=== PATIENT | male | born 1955 | race American Indian/Alaskan Native ===

== ENCOUNTER 2021-04-17 03:48 | Emergency (ER) | payer MEDICARE ==
[2021-04-17] MEDS ORDERED: predniSONE 20 MG TAB PO ONE (06:11)
[2021-04-17] MEDS ORDERED: KETOROLAC 30 MG/1 ML INJ IM ONE ×2 (06:12→06:18)
[2021-04-17] MEDS ORDERED: predniSONE 10 MG TAB PO ONE ×2 (06:16→07:12)
--- NOTE | 2021-04-17 09:25 | Emergency Department Report ---
ED General Adult HPI - General Chief complaint: Extremity Injury, Lower Stated complaint: POSSIBLE GOUT PAIN Time Seen by Provider: 04/17/21 09:20 Source: patient Mode of arrival: Ambulatory Limitations: No Limitations - History of Present Illness Initial comments: 65-year-old -[place] male patient presents with complaints of sudden onset of left ankle pain 2 days ago. Patient states pain is consistent with his previous episodes of gout. He admits to some swelling, but denies any redness, fever/chills/sweats, or numbness/tingling/weakness in his ankle/foot. Patient rates his pain as a 10/10 in severity initially, however since being here in the ED and receiving prednisone and Toradol, states his pain has significantly improved. He is not currently on allopurinol. Last medical history of diabetes per patient. -: Sudden Severity scale (0 -10): 8 - Related Data Previous Rx's Medication Instructions Recorded Last Taken Type Apixaban [Eliquis] 5 mg PO Q12HR #60 tablet 11/13/20 Unknown Rx Insulin Glargine [Lantus VIAL] 32 units SUB-Q QHS #1 vial 11/13/20 Unknown Rx Insulin Glargine [Lantus VIAL] 37 units SUB-Q QAMDIAB #1 vial 11/13/20 Unknown Rx Mv/K/Omg3/D3/Mag/C/G.tea/Chrom 1 each PO DAILY #1 combo..pkg 11/13/20 Unknown Rx [Diabetes Health Pack] Indomethacin 50 mg PO Q8H PRN #15 capsule 04/17/21 Unknown Rx Prednisone [predniSONE 5 mg (6-Day 5 mg PO .TAPER #1 tab.ds.pk 04/17/21 Unknown Rx Pack, 21 Tabs)] Allergies Allergy/AdvReac Type Severity Reaction Status Date / Time Penicillins Allergy Swelling Verified 10/31/20 21:30 ED Review of Systems ROS: Stated complaint: POSSIBLE GOUT PAIN Other details as noted in HPI Constitutional: denies: chills, fever Respiratory: denies: cough, shortness of breath Musculoskeletal: joint swelling, arthralgia Skin: denies: change in color ED Past Medical Hx - Past Medical History Previous Medical History?: No Hx Hypertension: Yes Hx Diabetes: Yes Additional medical history: GOUT - Surgical History Past Surgical History?: No Hx Coronary Stent: Yes (x6) - Social History Smoking Status: Never Smoker Substance Use Type: None - Medications Home Medications: Home Medications Medication Instructions Recorded Confirmed Last Taken Type Apixaban [Eliquis] 5 mg PO Q12HR #60 tablet 11/13/20 Unknown Rx Insulin Glargine [Lantus VIAL] 32 units SUB-Q QHS #1 vial 11/13/20 Unknown Rx Insulin Glargine [Lantus VIAL] 37 units SUB-Q QAMDIAB #1 vial 11/13/20 Unknown Rx Mv/K/Omg3/D3/Mag/C/G.tea/Chrom 1 each PO DAILY #1 combo..pkg 11/13/20 Unknown Rx [Diabetes Health Pack] Indomethacin 50 mg PO Q8H PRN #15 capsule 04/17/21 Unknown Rx Prednisone [predniSONE 5 mg (6-Day 5 mg PO .TAPER #1 tab.ds.pk 04/17/21 Unknown Rx Pack, 21 Tabs)] ED Physical Exam - General Limitations: No Limitations General appearance: alert, in no apparent distress, obese - Head Head exam: Present: atraumatic, normocephalic - Eye Eye exam: Present: normal appearance - Respiratory Respiratory exam: Absent: respiratory distress - Cardiovascular Cardiovascular Exam: Present: regular rate - Extremities Exam Extremities exam: Present: joint swelling (Tenderness and swelling noted to left ankle without overlying skin changes; patient has normal pedal pulse and range of motion and sensation) - Neurological Exam Neurological exam: Present: alert, oriented X3 - Psychiatric Psychiatric exam: Present: normal affect, normal mood ED Course Vital Signs 04/17/21 04/17/21 05:13 08:55 Temperature 98.9 F 98 F Pulse Rate 84 77 Respiratory 100 H 16 Rate Blood Pressure 180/106 Blood Pressure 113/60 [Right] O2 Sat by Pulse 94 98 Oximetry ED Medical Decision Making - Medical Decision Making 65-year-old -[place] male patient presents with complaints of sudden onset of left ankle pain 2 days ago. Patient states pain is consistent with his previous episodes of gout. He admits to some swelling, but denies any redness, fever/chills/sweats, or numbness/tingling/weakness in his ankle/foot. Patient rates his pain as a 10/10 in severity initially, however since being here in the ED and receiving prednisone and Toradol, states his pain has significantly improved. He is not currently on allopurinol. Last medical history of diabetes per patient. History and physical consistent with gout flare. Patient to discharge home with indomethacin and follow-up with his primary care in 3 to 5 days. Discussed signs and symptoms that should prompt immediate return to the emergency department in detail patient who verbalizes understanding. He is well-appearing and stable for discharge home Critical care attestation.: If time is entered above; I have spent that time in minutes in the direct care of this critically ill patient, excluding procedure time. ED Disposition Clinical Impression: Gout flare Disposition: DC- TO HOME OR SELFCARE Is pt being admited?: No Condition: Stable Instructions: Low-Purine Eating Plan Prescriptions: Indomethacin 50 mg PO Q8H PRN #15 capsule PRN Reason: pain Prednisone [predniSONE 5 mg (6-Day Pack, 21 Tabs)] 5 mg PO .TAPER #1 tab.herrera Referrals: [facility] [Provider Group] - 3-5 Days
[2021-04-17 09:42] VITALS: BP 181/101
== END 2021-04-17 09:30 | disposition home or self-care (01) ==
LOC: ED 03:48
DX: M10.9 Gout, unspecified (principal); I10 Essential (primary) hypertension; E11.9 Type 2 diabetes mellitus without complications; Z98.890 Other specified postprocedural states; Z79.4 Long term (current) use of insulin; Z79.899 Other long term (current) drug therapy; Z88.0 Allergy status to penicillin
CPT/HCPCS: 96372; 99282; J1885; J7512

== ENCOUNTER 2021-07-23 16:33 | Emergency (ER) | payer MEDICARE ==
[2021-07-23 20:49] VITALS: BP 194/115
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
== END 2021-07-23 22:06 | disposition home or self-care (01) ==
LOC: ED 16:33
DX: M54.2 Cervicalgia (principal); M54.5 Low back pain; I10 Essential (primary) hypertension; E11.8 Type 2 diabetes mellitus with unspecified complications; M10.9 Gout, unspecified; Z98.890 Other specified postprocedural states; Z88.0 Allergy status to penicillin; V87.7XXA Person injured in collision between other specified motor vehicles (traffic), initial encounter; Y93.89 Activity, other specified; Y92.89 Other specified places as the place of occurrence of the external cause; Y99.8 Other external cause status
CPT/HCPCS: 99281

== ENCOUNTER 2021-08-14 17:43 | Emergency (ER) | payer MEDICARE, OTHER ==
[2021-08-14 18:28] VITALS: BP 159/93
--- NOTE | 2021-08-14 18:48 | Emergency Department Report ---
ED General Adult HPI - General Chief complaint: Hyperglycemia Stated complaint: BLOOD SUGAR 326 Source: patient Mode of arrival: Ambulatory Limitations: No Limitations - History of Present Illness Initial comments: Patient came here at the direction of urgent care because of blood sugar was 326. He is diabetic. He is on oral medications. He has chosen not to take them. He noticed that his blood sugar was high and he Called urgent care. he states that urgent care told him to come here because his sugar was 326. He has no chest pain. He has no shortness of breath. There is no back pain or vomiting. He has had no trauma. Again, he has medications at home. He has chosen not to take them. He cannot really delineate why he chose not to take them. He states that maybe he did not need them. - Related Data Previous Rx's Medication Instructions Recorded Last Taken Type Apixaban [Eliquis] 5 mg PO Q12HR #60 tablet 11/13/20 Unknown Rx Insulin Glargine [Lantus VIAL] 32 units SUB-Q QHS #1 vial 11/13/20 Unknown Rx Insulin Glargine [Lantus VIAL] 37 units SUB-Q QAMDIAB #1 vial 11/13/20 Unknown Rx Mv/K/Omg3/D3/Mag/C/G.tea/Chrom 1 each PO DAILY #1 combo..pkg 11/13/20 Unknown Rx [Diabetes Health Pack] Indomethacin 50 mg PO Q8H PRN #15 capsule 04/17/21 Unknown Rx Prednisone [predniSONE 5 mg (6-Day 5 mg PO .TAPER #1 tab.ds.pk 04/17/21 Unknown Rx Pack, 21 Tabs)] Naproxen 375 mg PO BID PRN #14 tablet 07/23/21 Unknown Rx methOCARBAMOL [Robaxin TAB] 500 mg PO BID PRN #14 tab 07/23/21 Unknown Rx Allergies Allergy/AdvReac Type Severity Reaction Status Date / Time Penicillins Allergy Swelling Verified 10/31/20 21:30 ED Review of Systems ROS: Stated complaint: BLOOD SUGAR 326 Other details as noted in HPI ED Past Medical Hx - Past Medical History Previous Medical History?: Yes Hx Hypertension: Yes Hx Diabetes: Yes Additional medical history: GOUT - Surgical History Past Surgical History?: Yes Hx Coronary Stent: Yes (x6) - Social History Smoking Status: Never Smoker Substance Use Type: None - Medications Home Medications: Home Medications Medication Instructions Recorded Confirmed Last Taken Type Apixaban [Eliquis] 5 mg PO Q12HR #60 tablet 11/13/20 Unknown Rx Insulin Glargine [Lantus VIAL] 32 units SUB-Q QHS #1 vial 11/13/20 Unknown Rx Insulin Glargine [Lantus VIAL] 37 units SUB-Q QAMDIAB #1 vial 11/13/20 Unknown Rx Mv/K/Omg3/D3/Mag/C/G.tea/Chrom 1 each PO DAILY #1 combo..pkg 11/13/20 Unknown Rx [Diabetes Health Pack] Indomethacin 50 mg PO Q8H PRN #15 capsule 04/17/21 Unknown Rx Prednisone [predniSONE 5 mg (6-Day 5 mg PO .TAPER #1 tab.ds.pk 04/17/21 Unknown Rx Pack, 21 Tabs)] Naproxen 375 mg PO BID PRN #14 tablet 07/23/21 Unknown Rx methOCARBAMOL [Robaxin TAB] 500 mg PO BID PRN #14 tab 07/23/21 Unknown Rx ED Physical Exam - General Limitations: No Limitations ED Course Vital Signs 08/14/21 18:22 Temperature 98.3 F Pulse Rate 72 Respiratory 18 Rate Blood Pressure 159/93 O2 Sat by Pulse 100 Oximetry - Reevaluation(s) Reevaluation #1: 08/14/21 18:48 Labs were ordered. Reevaluation #2: 08/14/21 19:12 Glucose was noted. Patient can take his regular medication at home. He does not require emergent intervention here. ED Medical Decision Making - Lab Data Result diagrams: 08/14/21 18:33 Critical Care Time: No Critical care attestation.: If time is entered above; I have spent that time in minutes in the direct care of this critically ill patient, excluding procedure time. ED Disposition Clinical Impression: Hyperglycemia due to type 2 diabetes mellitus, Uncontrolled hypertension, Noncompliance Disposition: 01 HOME / SELF CARE / HOMELESS Is pt being admited?: No Does the pt Need Aspirin: No Condition: Stable Instructions: Diabetes Mellitus Type 2 in Adults (ED), Hypertension (ED), Hyperglycemia, [id number], Type 2 Diabetes Mellitus, Self Care, Adult, Preventing Hypertension, Preventing Diabetes Mellitus Complications, Managing Your Hypertension Additional Instructions: Take your medication. Avoid carbohydrates. Drink plenty of fluids. Avoid salt. Follow-up with your regular doctor. Return for problems. Referrals: PRIMARY CARE, [Referring] - 3-5 Days SAMUEL YUAN MD [Staff Physician] - 3-5 Days
[2021-08-14 19:00] LABS: BUN/Creatinine Ratio 17; Blood Urea Nitrogen 15 mg/dL (9-20); Calcium 9.6 mg/dL (8.4-10.2); Hemolysis Index 8
== END 2021-08-14 21:16 | disposition home or self-care (01) ==
LOC: ED 17:43
DX: E11.65 Type 2 diabetes mellitus with hyperglycemia (principal); I10 Essential (primary) hypertension; Z91.14 Patient's other noncompliance with medication regimen; M10.9 Gout, unspecified; Z98.890 Other specified postprocedural states; Z88.0 Allergy status to penicillin
CPT/HCPCS: 36415; 80048; 82962; 99283

== ENCOUNTER 2022-05-14 22:31 | Emergency (ER) | payer MEDICARE ==
[2022-05-15 02:16] VITALS: BP 198/90
== END 2022-05-15 17:29 | disposition left against medical advice (07) ==
LOC: ED 22:31
DX: I10 Essential (primary) hypertension (principal); Z53.21 Procedure and treatment not carried out due to patient leaving prior to being seen by health care provider